=== PATIENT | male | born 1935 | race Caucasian/White ===

== ENCOUNTER → 2023-09-03 12:26 | Outpatient (REF) | payer MEDICARE, BC, OTHER, SELFPAY ==
[2023-09-03 12:58] LABS: % Basophils 0.5 % (0-2); % Eosinophils 1.4 % (0-6); % Immature Granulocytes 0.3 % (0-0.5); % Lymphocytes 34.1 % (20.5-51.1); % Monocytes 7.4 % (1.7-9.3); % Neutrophils 56.3 % (42.2-75.2); Absolute Eosinophils 0.1 10^3/uL (0-0.7); Absolute Lymphocytes 1.3 10^3/uL (1.2-3.4); Absolute Monocytes 0.3 10^3/uL (0.1-0.6); Absolute Neutrophils 2.1 10^3/uL (1.4-6.5); Hematocrit 41.1 % (39.0-52.0); Hemoglobin 14.1 g/dL (13.0-18.0); Mean Corp Hgb Conc. 34.3 g/dL (33.0-37.0); Mean Corpuscular Hgb 31.2 pg (27.0-31.0); Mean Corpuscular Volume 90.9 fL (80.0-94.0); Mean Platelet Volume 10.2 fL (7.4-10.4); Nucleated Red Blood Cells % 0 % (-); Platelet Count 116 10^3/uL (130-400); Red Blood Cell Count 4.52 10^6/uL (4.70-6.10); Red Cell Dist. Width 12.8 % (11.5-14.5); White Blood Cell Count 3.7 10^3/uL (4.8-10.8)
[2023-09-03 13:05] LABS: ALT (SGPT) 17 U/L (0-50); AST (SGOT) 26 U/L (17-59); Albumin 3.9 g/dl (3.5-5.0); Alkaline Phosphatase 55 U/L (38-126); Blood Urea Nitrogen 12 mg/dl (9-20); Calcium 8.7 mg/dl (8.4-10.2); Carbon Dioxide 29 mmol/L (22-30); Chloride 105 mmol/L (98-107); Glucose 85 mg/dl (70-99); Magnesium 2.3 mg/dl (1.6-2.3); Potassium 4.1 mmol/L (3.5-5.1); Sodium 138 mmol/L (135-145); Total Bilirubin 0.9 mg/dl (0.2-1.3); Total Protein 6.4 g/dl (6.3-8.2); eGFR > 60.00
[2023-09-03 13:22] LABS: Free T4 1.29 ng/dl (0.78-2.19); Vitamin D, 25-OH*** 33.7 ng/mL (30-80)
[2023-09-03 13:35] LABS: TSH 1.49 uIU/ml (0.47-4.68)
[2023-09-04 11:15] LABS: Glycohemoglobin (HgbA1c) 5.5 % (4.0-5.6)
== END ==
LOC: OLABMERCHI 12:26
PROVIDERS: ATTENDING PHYSICIAN Nurse Practitioner Gerontology; FAMILY PHYSICIAN Hospitalist
DX: D64.9 Anemia, unspecified (principal); R94.4 Abnormal results of kidney function studies; E11.9 Type 2 diabetes mellitus without complications; E78.5 Hyperlipidemia, unspecified; E03.9 Hypothyroidism, unspecified; E55.9 Vitamin D deficiency, unspecified; E61.2 Magnesium deficiency
CPT/HCPCS: 36415; 80053; 82306; 83036; 83735; 84439; 84443; 85025

== ENCOUNTER 2025-05-14 22:57 | Day surgery (SDC) | payer MEDICARE, BC, OTHER, SELFPAY ==
[2025-05-14 20:07] VITALS: BP 182/91
--- NOTE | 2025-05-14 21:14 | ED.GENMED ---
History of Present Illness
General
Chief Complaint: Swallowing Problem
Source: patient and family
Time Seen by Provider: 05/14/25 21:05
History of Present Illness
History of Present Illness:
89-year-old male presents emergency room complaining of esophageal obstruction. Patient has significant history with esophageal problems. He had surgery for achalasia in 1978. He has had multiple episodes of esophageal obstruction requiring
endoscopy since then. 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 They called the office he was instructed to go to the closest hospital which [place] [facility]. The last time the patient had an endoscopy was here at [place] in 2022 for an
impacted food bolus. Currently he is unable to tolerate any water or his secretions. He has a sensation of a foreign body in his esophagus.
Past History
Past History
ED Past Surgical History: Appendectomy, Cholecystectomy and Other (Esophageal surgery for Blum's esophagus.)
Phy Exam
Physical Exam
Physical Exam:
General: Awake, Alert, Oriented X3. No acute distress.
Vitals: unremarkable
Head: Atraumatic
Eyes: Pupils equal, EOMI
Throat: Airway intact, no exudates
Neck: Trachea midline
Lungs: Clear and equal b/l
Heart: Regular rate, no murmurs
Abd: Soft, Nontender, No pulsatile mass
Neuro: Nonfocal
Skin: Warm, dry, no rash
Extremities: pulses equal b/l, no edema
Course
Orders/Labs/Results
Orders:
Orders
05/14/25 21:11
Glucagon [GlucaGen] 1 mg .ROUTE .STK-MED ONE
Glucagon [GlucaGen] 1 mg IV NOW STA
05/15/25 Breakfast
NPO
Allow oral meds: Yes
Allow clear liquids: Sips of Clears
Vital Signs
Initial and Last Documented VS:
Initial Vital Signs
Temp Pulse Resp BP Pulse Ox
97.9 F 84 18 182/91 97
05/14/25 20:07 05/14/25 20:07 05/14/25 20:07 05/14/25 20:07 05/14/25 20:07
Last Documented Vital Signs
Temp Pulse Resp BP Pulse Ox
97.9 F 84 18 127/71 94
05/14/25 20:07 05/14/25 20:07 05/14/25 20:07 05/14/25 22:00 05/14/25 22:00
*Pulse Oximetry
SaO2: 97
Oxygen Mode of Delivery: Room air
ED Attending Note
-
Portions of this chart may have been created with voice recognition software.� Occasional wrong word or��sound alike� substitutions may have occurred due to the inherent limitations of voice recognition software.
Discharge Plan
Departure
Patient Disposition: GI LAB
Date of Disposition: 05/14/25
Time of Disposition: 22:21
Condition: Fair
Discharge Problem:
Esophageal obstruction
Prescriptions:
No Action
tamsulosin [Flomax] 0.4 mg Capsule
0.8 mg PO HS
finasteride
5 mg PO HS
fluconazole 200 mg Tablet
200 mg PO DAILY 20 Days Qty: 20 0RF
lansoprazole [Prevacid] 30 mg capsule,delayed release(DR/EC)
30 mg PO DAILY 30 Days Qty: 30 0RF
Referrals:
Mike Becerra DO [Family Provider, Family Practice]
Interventions
Interventions:
*Risk Screen - Suicide Last Done: 05/14/25 20:07
*General Assessment Last Done: 05/14/25 20:07
*Neglect/Abuse Screening Last Done: 05/14/25 21:22
*ED- Fall Risk Assessment Last Done: 05/14/25 21:17
*ED COVID-19 Vaccine History Last Done: 05/14/25 21:17
*ED Influenza Vaccine History Last Done: 05/14/25 21:17
ED-EENT Assessment Last Done: 05/14/25 21:18
KR-Lfzoyv-Mokyrkrjjr Assessment Last Done: 05/14/25 21:18
ED- Pulmonary Assessment Last Done: 05/14/25 21:18
ED- Neurological Assessment Last Done: 05/14/25 21:18
ED Swallowing Screen Last Done: 05/14/25 21:18
Discharge Date and Time
Print Language: THAI
[2025-05-14 21:16] VITALS: BMI 23.0
[2025-05-14 22:00] VITALS: BP 127/71
--- NOTE | 2025-05-14 23:08 | CON.GI ---
Consultation
-
Date/Time Consultation Requested: 05/14/2025
Date/Time Consultation Performed: 05/14/2025
Performing Provider: Sahil Sadler
Reason for Consultation: food impaction
Medical History
Chief Complaint / HPI
Chief Complaint: food impaction
History of Present Illness:
89-year-old male p/w food impaction. He had surgery for achalasia in 1978. He has had multiple episodes of esophageal obstruction requiring endoscopy since then. He had EGD here for food impaction in 2022. Currently he is unable to tolerate any
water or his secretions. He has a sensation of a foreign body in his esophagus.
Past Medical History
Past Medical History: Other
Past Surgical History: Other
Allergies / Home Medications
Allergy/AdvReac Type Severity Reaction Status Date / Time
No Known Allergies Allergy Verified 05/14/25 20:07
�Medication �Instructions �Recorded
finasteride 5 mg PO HS Urinary Issue 03/16/23
tamsulosin 0.4 mg capsule (Flomax) 0.8 mg PO HS Urinary Issue 03/16/23
fluconazole 200 mg tablet 200 mg PO DAILY 20 days #20 tabs 03/17/23
lansoprazole 30 mg capsule,delayed 30 mg PO DAILY 30 days #30 caps 03/17/23
release (Prevacid)
Review of Systems
Vital Signs
Temp Pulse Resp BP Pulse Ox
97.9 F 84 18 127/71 94
05/14/25 20:07 05/14/25 20:07 05/14/25 20:07 05/14/25 22:00 05/14/25 22:45
Physical Exam
Exam
General: Well Developed and Well Nourished
HEENT: Normocephalic
Respiratory: Clear
Cardiac: S1/S2
GI: Soft, Non Tender, Non Distended and Normal Bowel Sounds
Results
Diagnostic Image Results:
Prior GI Procedures:
EGD:
Colonoscopy:
Assessment / Plan
-
89-year-old male p/w food impaction.
Impression / Rec
1. Food impaction - had achalasia w/ surgical Heller's myotomy in 1978, multiple episodes of food impaction, last in 2022 with EGD for disimpaction. EGD now for intervention.
Total Time Spent with Patient (in minutes): 55
-
-
Thank you for consultation and allowing me to participate in the patient's care. Please call the ammunition components inspector GI physician during the after hours with any questions or concerns.
[2025-05-15 00:50] VITALS: BP 127/71; BP 141/57
[2025-05-15 01:00] VITALS: BP 138/66
[2025-05-15 01:15] VITALS: BP 138/68
[2025-05-15 01:20] VITALS: BP 130/74
== END 2025-05-15 01:30 | disposition home or self-care (01) ==
LOC: SDS 22:57
PROVIDERS: EMERGENCY PHYSICIAN Emergency Medicine; FAMILY PHYSICIAN Family Medicine
DX: T18.128A Food in esophagus causing other injury, initial encounter (principal); W44.F3XA Food entering into or through a natural orifice, initial encounter; R13.10 Dysphagia, unspecified; K22.2 Esophageal obstruction; K22.10 Ulcer of esophagus without bleeding; K22.89 Other specified disease of esophagus
CPT/HCPCS: 43247; 96374; 99285; J1610